=== PATIENT | female | born 1965 | race Caucasian/White ===

== ENCOUNTER 2017-04-10 14:27 | Emergency (ER) | payer MEDICARE, MEDICAID ==
[2017-04-10] MEDS ORDERED: Tetan/Diph/Pertus SYR(Tdap)* 0.5 ML SYR(BOOSTRIX) use SYR IM ONE (16:50)
[2017-04-10 17:13] VITALS: BP 108/62
--- NOTE | 2017-04-11 18:29 | ED ---
Ryan Swift Angela, scribed for Rob Pan MD on 04/10/17 at 1642 . Skin Complaint - HPI Summary HPI Summary: This pt is a 52 y/o female presenting to [facility] for a burn on right forearm since yesterday. Pt reports she was in the kitchen yesterday when her knees gave out and fell hitting her right forearm on the stove. She sustained a burn on her right forearm from this. Denies head strike or LOC. Pt notes she had a blister today that popped open and had clear discharge. Pt notes she has some pain now. She states her last tetanus shot was "years ago." - History of Current Complaint Chief Complaint: EDExtremityUpper Time Seen by Provider: 04/10/17 16:28 Stated Complaint: FALL/RT ARM INJURY Hx Obtained From: Patient Onset/Duration: Started Days Ago - 1, Still Present Skin Exposure Onset/Duration: Days Ago - 1 Timing: Lasting Days - 1 Current Severity: Moderate Pain Intensity: 6 Pain Scale Used: 0-10 Numeric Skin Location: Arm - right forearm Character: Pain, Redness Aggravating Symptom(s): Nothing Alleviating Symptom(s): Nothing Associated Signs & Symptoms: Negative - Allergy/Home Medications Allergies/Adverse Reactions: Allergies Allergy/AdvReac Type Severity Reaction Status Date / Time alcohol Allergy Intermediate Headache Verified 04/10/17 13:31 oxycodone Allergy Intermediate Unknown Verified 04/10/17 13:31 Reaction Details PMH/Surg Hx/FS Hx/Imm Hx Endocrine/Hematology History: Denies: Hx Anticoagulant Therapy, Hx Diabetes, Hx Thyroid Disease Cardiovascular History: Reports: Hx Hypertension, Hx Syncope Denies: Hx Pacemaker/ICD Respiratory History: Reports: Hx Sleep Apnea Denies: Hx Asthma, Hx Chronic Obstructive Pulmonary Disease (COPD) GI History: Reports: Hx Ulcer History: Denies: Hx Renal Disease Musculoskeletal History: Reports: Hx Arthritis, Hx Back Problems, Hx Orthopedic Injury - Fracture left arm, Hx Scoliosis, Hx Tendonitis Comment Only: Other Musculoskeletal History - CARPLE TUNNEL SYNDROME Sensory History: Reports: Hx Contacts or Glasses Opthamlomology History: Reports: Hx Contacts or Glasses Neurological History: Reports: Hx Migraine Denies: Hx Dementia, Hx Seizures Psychiatric History: Reports: Hx Anxiety, Hx Depression Denies: Hx Substance Abuse - Cancer History Cancer Type, Location and Year: LT BREAST CA - Surgical History Surgery Procedure, Year, and Place: Hysterectomy 2016 [facility], [facility] in [place], [place]; Lymph nodes and 3 nodules removed from left breast [facility] in [place], [place]; 3 C-Sections; Carpal Tunnel Surgery bilateral wrist in [place] in 2004; [employer] Shadi Implant for Scoliosis in 1983 in [place] Infectious Disease History: No Infectious Disease History: Denies: Hx Hepatitis, Hx Human Immunodeficiency Virus (HIV), Traveled Outside the [place] in Last 30 Days - Family History Family History: Migraine - Social History Alcohol Use: None Substance Use Type: Reports: None Smoking Status (MU): Current Every Day Smoker Type: Cigarettes Amount Used/How Often: 6-10 cigarettes/day Have You Smoked in the Last Year: Yes Review of Systems Negative: Fever, Chills Eyes: Negative ENT: Negative Cardiovascular: Negative Respiratory: Negative Gastrointestinal: Negative Skin: Other - burn on right forearm Neurological: Negative All Other Systems Reviewed And Are Negative: Yes Physical Exam - Summary Physical Exam Summary: VITAL SIGNS: Reviewed. GENERAL: Patient is a well-developed and nourished female who is lying comfortable in the stretcher. Patient is not in any acute respiratory distress. HEAD AND FACE: No signs of trauma. No ecchymosis, hematomas or skull depressions. No sinus tenderness. EYES: PERRLA, EOMI x 2, No injected conjunctiva, no nystagmus. EARS: Hearing grossly intact. Ear canals and tympanic membranes are within normal limits. MOUTH: Oropharynx within normal limits. NECK: Supple, trachea is midline, no adenopathy, no JVD, no carotid bruit, no c- spine tenderness, neck with full ROM. CHEST: Symmetric, no tenderness at palpation LUNGS: Clear to auscultation bilaterally. No wheezing or crackles. CVS: Regular rate and rhythm, S1 and S2 present, no murmurs or gallops appreciated. ABDOMEN: Soft, non-tender. No signs of distention. No rebound no guarding, and no masses palpated. Bowel sounds are normal. EXTREMITIES: FROM in all major joints, no edema, no cyanosis or clubbing. NEURO: Alert and oriented x 3. No acute neurological deficits. Speech is normal and follows commands. SKIN: Dry and warm. Small first degree burn on the dorsal aspect of the right forearm. Triage Information Reviewed: Yes Vital Signs On Initial Exam: Initial Vitals Temp Pulse Resp BP Pulse Ox 97.0 F 90 15 143/99 97 04/10/17 14:39 04/10/17 14:39 04/10/17 14:39 04/10/17 14:39 04/10/17 14:39 Vital Signs Reviewed: Yes Diagnostics - Vital Signs Vital Signs Temp Pulse Resp BP Pulse Ox 04/10/17 14:39 97.0 F 90 15 143/99 97 - Laboratory Lab Statement: Any lab studies that have been ordered have been reviewed, and results considered in the medical decision making process. Course/Dx - Course Assessment/Plan: This pt is a 52 y/o female presenting to [facility] for a burn on right forearm since yesterday. Pt reports she was in the kitchen yesterday when her knees gave out and fell hitting her right forearm on the stove. She sustained a burn on her right forearm from this. Denies head strike or LOC. Pt notes she had a blister today that popped open and had clear discharge. Pt notes she has some pain now. She states her last tetanus shot was "years ago." . I placed Bacitracin on pts burn. She was given a tetanus shot. Her wound was cleaned and dressed. Therefore the pt will be discharged home with follow up from her PCP. She was instructed to return to the ED for any worsening or new symptoms. Pt is hemodynamically stable, alert and oriented x3. - Diagnoses Provider Diagnoses: First degree burn Discharge - Discharge Plan Condition: Stable Disposition: HOME Patient Education Materials: Superficial Burn (ED) Referrals: Luis Antonio LEDEZMA,Pranay Farrell [Primary Care Provider] - 3 Days Additional Instructions: Please follow up with your primary care provider. RETURN TO THE ED FOR ANY WORSENING SYMPTOMS. The documentation as recorded by the Ryan rich Angela accurately reflects the service I personally performed and the decisions made by me, Rob Pan MD.
== END 2017-04-10 17:11 | disposition home or self-care (01) ==
LOC: ED 14:27
DX: T22.111A Burn of first degree of right forearm, initial encounter (principal); X15.0XXA Contact with hot stove (kitchen), initial encounter; Y92.89 Other specified places as the place of occurrence of the external cause; F17.210 Nicotine dependence, cigarettes, uncomplicated
CPT/HCPCS: 90471; 90715; 99281

== ENCOUNTER 2017-06-20 12:28 | Emergency (ER) | payer MEDICARE, MEDICAID ==
[2017-06-20] MEDS ORDERED: diPHENhydraMINE IV* 50 MG/ML 1 ml VIAL (BENADRYL) IM ONE (16:08)
[2017-06-20] MEDS ORDERED: Metoclopramide IV* 5 MG/ML 2 ML VIAL ONE (16:09)
[2017-06-20] MEDS ORDERED: Butalb/Acetamin/Caff TAB* 1 TAB PO ONE (17:10)
[2017-06-20 17:39] VITALS: BP 142/91
--- NOTE | 2017-06-20 17:45 | ED ---
Ryan Swift Angela, scribed for Demar Nolen on 06/20/17 at 1622 . Headache - HPI Summary HPI Summary: This pt is a 52 y/o female presenting to [facility] c/o headache x2 days. Pt reports this headache is similar to her typical migraine headache. She has taken Imitrex with no relief. Pt rates her pain 8 out of 10 in severity. Pt denies fever, neck pain, blurry vision. Denies tobacco, drug, and alcohol use. - History Of Current Complaint Chief Complaint: EDHeadache Stated Complaint: N/V Time Seen by Provider: 06/20/17 16:01 Hx Obtained From: Patient Onset/Duration: Started days ago, Still Present Initially Headache Was: Moderate Timing: Constant Character: Migraine Aggravating Factor: Nothing Allevating Factors: Nothing Associated Signs And Symptoms: Negative - Allergies/Home Medications Allergies/Adverse Reactions: Allergies Allergy/AdvReac Type Severity Reaction Status Date / Time acetaminophen Allergy Severe See Comment Verified 06/20/17 12:35 alcohol Allergy Intermediate Headache Verified 06/20/17 12:35 oxycodone Allergy Intermediate Unknown Verified 06/20/17 12:35 Reaction Details Home Medications: Home Medications Candesartan (NF) [Atacand (NF)] 16 mg PO DAILY 06/20/17 [History Confirmed 06/20] Divalproex ER TAB(*) [Depakote ER TAB(*)] 500 mg PO BID 06/20/17 [History Confirmed 06/20/17] Gabapentin CAP(*) [Neurontin 300 CAP(*)] 300 mg PO TID 06/20/17 [History Confirmed 06/20/17] Methocarbamol TAB* [Robaxin 500 MG TAB*] 500 mg PO TID PRN 06/20/17 [History Confirmed 06/20/17] Naproxen TAB* [Naprosyn 375 mg TAB*] 500 mg PO BID 06/20/17 [History Confirmed 06/20/17] Nortriptyline CAP* [Pamelor CAP*] 50 mg PO QPM 06/20/17 [History Confirmed 06/20] Ondansetron TAB* [Zofran 4 MG Tab*] 8 mg PO DAILY PRN 06/20/17 [History Confirmed 06/20/17] SUMAtriptan TAB* [Imitrex TAB*] 100 mg PO DAILY PRN 06/20/17 [History Confirmed 06/20/17] traMADol TAB* [Ultram*] 50 mg PO TID PRN 06/20/17 [History Confirmed 06/20/17] PMH/Surg Hx/FS Hx/Imm Hx Endocrine/Hematology History: Denies: Hx Anticoagulant Therapy, Hx Diabetes, Hx Thyroid Disease Cardiovascular History: Reports: Hx Hypertension, Hx Syncope Denies: Hx Pacemaker/ICD Respiratory History: Reports: Hx Sleep Apnea Denies: Hx Asthma, Hx Chronic Obstructive Pulmonary Disease (COPD) GI History: Reports: Hx Ulcer History: Denies: Hx Renal Disease Musculoskeletal History: Reports: Hx Arthritis, Hx Back Problems, Hx Orthopedic Injury - Fracture left arm, Hx Scoliosis, Hx Tendonitis Comment Only: Other Musculoskeletal History - CARPLE TUNNEL SYNDROME Sensory History: Reports: Hx Contacts or Glasses Opthamlomology History: Reports: Hx Contacts or Glasses Neurological History: Reports: Hx Migraine Denies: Hx Dementia, Hx Seizures Comment Only: Other Neuro Impairments/Disorders - PAIN CLINIC PT Psychiatric History: Reports: Hx Anxiety, Hx Depression Denies: Hx Substance Abuse - Cancer History Cancer Type, Location and Year: LT BREAST CA - Surgical History Surgery Procedure, Year, and Place: Hysterectomy 2016 [facility] in [place], [place]; Lymph nodes and 3 nodules removed from left breast 2013 at [facility] in [place], [place]; 3 C-Sections; Carpal Tunnel Surgery bilateral wrist in [place] in 2004; [employer] Shadi Implant for Scoliosis in 1983 in [place] Infectious Disease History: No Infectious Disease History: Denies: Hx Hepatitis, Hx Human Immunodeficiency Virus (HIV), Traveled Outside the in Last 30 Days - Family History Family History: Migraine - Social History Alcohol Use: None Substance Use Type: Reports: None Smoking Status (MU): Current Every Day Smoker Type: Cigarettes Amount Used/How Often: 6-10 cigarettes/day Have You Smoked in the Last Year: Yes Review of Systems Negative: Fever, Chills Gastrointestinal: Negative Genitourinary: Negative Musculoskeletal: Negative Skin: Negative Positive: Headache All Other Systems Reviewed And Are Negative: Yes Physical Exam - Summary Physical Exam Summary: Appearance: Well appearing, no pain distress Skin: warm, dry, reflects adequate perfusion Head/face: normal Eyes: EOMI, CHAN ENT: normal Neck: supple, nontender Respiratory: CTA, breath sounds present Cardiovascular: RRR, pulses symmetrical Abdomen: nontender, soft Bowel: present Musculoskeletal: normal, strength/ROM intact Neuro: normal, sensory motor intact, A&Ox3 GCS: 15 Triage Information Reviewed: Yes Vital Signs On Initial Exam: Initial Vitals Temp Pulse Resp BP Pulse Ox 98.0 F 87 16 152/100 99 06/20/17 12:31 06/20/17 12:31 06/20/17 12:31 06/20/17 12:31 06/20/17 12:31 Vital Signs Reviewed: Yes Diagnostics - Vital Signs Vital Signs Temp Pulse Resp BP Pulse Ox 06/20/17 14:26 98.6 F 84 17 157/95 97 06/20/17 12:31 98.0 F 87 16 152/100 99 - Laboratory Lab Statement: Any lab studies that have been ordered have been reviewed, and results considered in the medical decision making process. Headache Course/Dx - Course Assessment/Plan: Pt is a 52 y/o female presenting to [facility] c/o headache x2 days. Pt declines brain CT. In the ED course the pt was given Benadryl, Reglan , and Fioricet. Pt is feeling better. She will be discharged home with follow up from her PCP. Pt was given instructions to return to the ED for any worsening symptoms. - Diagnoses Differential Diagnosis/HQI/PQRI: Migraine, Sinus Headache, Tension Headache Provider Diagnoses: Headache Discharge - Sign-Out/Discharge Documenting (check all that apply): Discharge/Admit/Transfer - discharge to home - Discharge Plan Condition: Stable Disposition: HOME Patient Education Materials: General Headache (ED) Referrals: Luis Antonio LEDEZMA,Pranay Farrell [Primary Care Provider] - Additional Instructions: Please follow up with your primary care provider in 3 days. RETURN TO THE ED FOR ANY WORSENING SYMPTOMS. - Billing Disposition and Condition Condition: STABLE Disposition: HOME The documentation as recorded by the Ryan rich Angela accurately reflects the service I personally performed and the decisions made by , Demar Nolen.
== END 2017-06-20 17:38 | disposition home or self-care (01) ==
LOC: ED 12:28
DX: R51 Headache (principal); I10 Essential (primary) hypertension; R55 Syncope and collapse; F41.9 Anxiety disorder, unspecified; F32.9 Major depressive disorder, single episode, unspecified; Z88.6 Allergy status to analgesic agent; Z88.5 Allergy status to narcotic agent; F17.210 Nicotine dependence, cigarettes, uncomplicated
CPT/HCPCS: 96372; 99282; A9270-GY; J1200; J2765

== ENCOUNTER 2017-08-20 15:32 | Observation (INO) | payer MEDICARE, MEDICAID ==
[2017-08-20] MEDS ORDERED: Morphine VIAL* 4 MG/ML VIAL (1 ml vial) IV ONE (16:15)
[2017-08-20] MEDS ORDERED: Aspirin 81 mg CHEW TAB* 81 MG TAB.CHEW PO ONE (16:15)
--- NOTE | 2017-08-20 16:25 | RAD ---
Indication: Chest pain. Single frontal view of the chest performed at 1615 hours was reviewed. No prior study is available for comparison. No mediastinal shift is noted. Heart is of normal size and configuration. Lung bowling appear clear. IMPRESSION: NO ACTIVE CARDIOPULMONARY DISEASE IS NOTED.
[2017-08-20 16:29] LABS: ABS Basophils 0.1 10^3/ul (0-0.2); ABS Eosinophils 0.2 10^3/ul (0-0.6); ABS Lymphocytes 3.3 10^3/ul (1.0-4.8); ABS Monocytes 1.1 10^3/ul (0-0.8); ABS Neutrophils 5.7 10^3/ul (1.5-7.7); ABS Nucleated RBC 0 10^3/ul; Eosinophil % 1.5 % (0-6); Hematocrit 39 % (35-47); Hemoglobin 13.3 g/dl (12.0-16.0); Mean Corpuscular HGB Conc 34 g/dl (31-36); Mean Corpuscular Hemoglobin 32 pg (27-31); Mean Corpuscular Volume 93 fL (80-97); Mean Platelet Volume 8.7 um3 (7.4-10.4); Nucleated Red Blood Cells % 0.1; Platelet Count 287 10^3/ul (150-450); Red Blood Count 4.19 10^6/ul (4.00-5.40); Red Cell Distribution Width 14 % (10.5-15); White Blood Count 10.4 10^3/ul (3.5-10.8)
[2017-08-20 16:38] LABS: INR 0.99 (0.77-1.02)
[2017-08-20] MEDS ORDERED: Nitroglycerin TAB 0.4 MG* 0.4 MG TAB SL ONE ×2 (17:05→18:07)
[2017-08-20] MEDS ORDERED: Methocarbamol TAB* 500 MG PO PRN (17:53)
[2017-08-20] MEDS ORDERED: traMADol TAB* 50 MG PO PRN (17:53)
[2017-08-20] MEDS ORDERED: SUMATRIPTAN 20 MG PRN (17:53)
[2017-08-20] MEDS ORDERED: Naproxen TAB* 250 MG PO PRN (17:53)
[2017-08-20] MEDS ORDERED: Ondansetron 40 MG VIAL* 2 MG/ML 20 ML VIAL IV PRN (17:55)
[2017-08-20] MEDS ORDERED: NS 0.9% 1000 ML* 1,000 ML IV SCH (18:00)
[2017-08-20] MEDS ORDERED: SUMAtriptan TAB* 100 MG PO PRN (18:00)
[2017-08-20] MEDS ORDERED: Morphine VIAL* 4 MG/ML VIAL (1 ml vial) IV PRN (18:03)
--- NOTE | 2017-08-20 19:33 | ED ---
Antoinette Swift Jade, scribed for Margret Marrufo MD on 08/20/17 at 1606 . HPI Chest Pain - HPI Summary HPI Summary: Pt is a 52 y/o female who presents to the ED c/o CP. She states the pain suddenly came on at 13:30 while waiting to get Botox injections for her migraines. The pain is described as a 2/10 in severity, and is sharp in quality. Pt feels like there are intermittent shocks to her chest as well, which intensify her migraine in her temples. She also c/o mild SOB, diaphoresis , and states she has high BP currently. She has a PMHx of HTN, scoliosis, breast cancer, syncope, ulcers, arthritis, anxiety, depression, and migraines. She denies any PMHx of HLD, RI, or blood clots. Pt denies any use of drugs of alcohol, but is a smoker. She is not on blood thinners. - History of Current Complaint Chief Complaint: EDChestPainROMI Time Seen by Provider: 08/20/17 15:51 Hx Obtained From: Patient Onset/Duration: Started Hours Ago - 13:30, Still Present Timing: Constant Current Severity: Mild Pain Intensity: 2 Pain Scale Used: 0-10 Numeric Chest Pain Location: Mid Sternal Chest Pain Radiates: No Character: Sharp/Stabbing Aggravating Factor(s): Nothing Alleviating Factor(s): Nothing Associated Signs and Symptoms: Positive: Chest Pain, Headaches, Shortness of Breath - Allergy/Home Medications Allergies/Adverse Reactions: Allergies Allergy/AdvReac Type Severity Reaction Status Date / Time acetaminophen Allergy Severe See Comment Verified 08/20/17 15:43 alcohol Allergy Intermediate Headache Verified 08/20/17 15:43 oxycodone Allergy Intermediate Unknown Verified 08/20/17 15:43 Reaction Details PMH/Surg Hx/FS Hx/Imm Hx Endocrine/Hematology History: Denies: Hx Anticoagulant Therapy, Hx Diabetes, Hx Thyroid Disease Cardiovascular History: Reports: Hx Hypertension, Hx Syncope Denies: Hx Pacemaker/ICD Respiratory History: Reports: Hx Sleep Apnea Denies: Hx Asthma, Hx Chronic Obstructive Pulmonary Disease (COPD) GI History: Reports: Hx Ulcer History: Denies: Hx Renal Disease Musculoskeletal History: Reports: Hx Arthritis, Hx Back Problems, Hx Orthopedic Injury - Fracture left arm, Hx Scoliosis, Hx Tendonitis Comment Only: Other Musculoskeletal History - CARPLE TUNNEL SYNDROME Sensory History: Reports: Hx Contacts or Glasses Opthamlomology History: Reports: Hx Contacts or Glasses Neurological History: Reports: Hx Migraine Denies: Hx Dementia, Hx Seizures Comment Only: Other Neuro Impairments/Disorders - PAIN CLINIC PT Psychiatric History: Reports: Hx Anxiety, Hx Depression Denies: Hx Substance Abuse - Cancer History Cancer Type, Location and Year: LT BREAST CA - Surgical History Surgery Procedure, Year, and Place: Hysterectomy 2016 [facility] in [place], [place]; Lymph nodes and 3 nodules removed from left breast [facility] [place], [place]; 3 C-Sections; Carpal Tunnel Surgery bilateral wrist in [place] in 2004; Clarke Shadi Implant for Scoliosis in 1983 in [place] Infectious Disease History: No Infectious Disease History: Denies: Hx Hepatitis, Hx Human Immunodeficiency Virus (HIV), Traveled Outside the in Last 30 Days - Family History Known Family History: Positive: Cardiac Disease - RI (father at 54), Other - Migraine Family History: Migraine - Social History Occupation: Disabled Alcohol Use: None Substance Use Type: Reports: None Smoking Status (MU): Current Every Day Smoker Type: Cigarettes Amount Used/How Often: 6-10 cigarettes/day Have You Smoked in the Last Year: Yes Review of Systems Positive: Skin Diaphoresis Positive: Chest Pain Positive: Shortness Of Breath Positive: Headache - Migraine All Other Systems Reviewed And Are Negative: Yes Physical Exam - Summary Physical Exam Summary: GENERAL: Patient is a well-developed and nourished F who is lying comfortable in the stretcher. Patient is not in any acute respiratory distress. HEAD AND FACE: Normocephalic. EYES: PERRLA, EOMI x 2. EARS: Hearing grossly intact. MOUTH: Oropharynx within normal limits. NECK: Supple, trachea is midline, no adenopathy, no JVD, no carotid bruit. CHEST: Symmetric, no tenderness at palpation LUNGS: Clear to auscultation bilaterally. No wheezing or crackles. CVS: Regular rate and rhythm, S1 and S2 present, no murmurs or gallops appreciated. ABDOMEN: Soft, non-tender. Bowel sounds are normal. No abdominal abnormal pulsations. EXTREMITIES: Full ROM in all major joints, no edema, no cyanosis or clubbing. NEURO: Alert and oriented x 3. No acute neurological deficits. Speech is normal and follows commands. SKIN: Dry and warm. Triage Information Reviewed: Yes Vital Signs On Initial Exam: Initial Vitals Temp Pulse Resp BP Pulse Ox 97.6 F 85 22 164/99 98 08/20/17 15:35 08/20/17 15:35 08/20/17 15:35 08/20/17 15:35 08/20/17 15:35 Vital Signs Reviewed: Yes Diagnostics - Vital Signs Vital Signs Temp Pulse Resp BP Pulse Ox 08/20/17 15:35 97.6 F 85 22 164/99 98 - Laboratory Lab Results: Lab Results 08/20/17 08/20/17 08/20/17 Range/Units 16:14 16:14 16:14 WBC 10.4 (3.5-10.8) 10^3/ul RBC 4.19 (4.00-5.40) 10^6/ul Hgb 13.3 (12.0-16.0) g/dl Hct 39 (35-47) % MCV 93 (80-97) fL MCH 32 H (27-31) pg MCHC 34 (31-36) g/dl RDW 14 (10.5-15) % Plt Count 287 (150-450) 10^3/ul MPV 8.7 (7.4-10.4) um3 Neut % (Auto) 55.2 (38-83) % Lymph % (Auto) 32.0 (25-47) % Bailey % (Auto) 10.1 H (0-7) % Eos % (Auto) 1.5 (0-6) % Baso % (Auto) 1.2 (0-2) % Absolute Neuts (auto) 5.7 (1.5-7.7) 10^3/ul Absolute Lymphs (auto) 3.3 (1.0-4.8) 10^3/ul Absolute Monos (auto) 1.1 H (0-0.8) 10^3/ul Absolute Eos (auto) 0.2 (0-0.6) 10^3/ul Absolute Basos (auto) 0.1 (0-0.2) 10^3/ul Absolute Nucleated RBC 0 10^3/ul Nucleated RBC % 0.1 INR (Anticoag Therapy) 0.99 (0.77-1.02) APTT 34.3 (26.0-36.3) seconds D-Dimer, Quantitative < 200 (Less Than 230) ng/mL Sodium 139 (135-145) mmol/L Potassium 3.6 (3.5-5.0) mmol/L Chloride 108 (101-111) mmol/L Carbon Dioxide 24 (22-32) mmol/L Anion Gap 7 (2-11) mmol/L BUN 7 (6-24) mg/dL Creatinine 0.63 (0.51-0.95) mg/dL Est GFR ( Amer) 121.0 (>60) Est GFR (Non-Af Amer) 100.0 (>60) BUN/Creatinine Ratio 11.1 (8-20) Glucose 108 H (70-100) mg/dL Hemoglobin A1c (4.0-5.6) % Lactic Acid (0.5-2.0) mmol/L Calcium 9.8 (8.6-10.3) mg/dL Magnesium 2.1 (1.9-2.7) mg/dL Total Bilirubin 0.40 (0.2-1.0) mg/dL AST 11 L (13-39) U/L ALT 11 (7-52) U/L Alkaline Phosphatase 71 (34-104) U/L Troponin I 0.00 (<0.04) ng/mL B-Natriuretic Peptide ( - 100) pg/mL Total Protein 6.9 (6.4-8.9) g/dL Albumin 3.9 (3.2-5.2) g/dL Globulin 3.0 (2-4) g/dL Albumin/Globulin Ratio 1.3 (1-3) 08/20/17 08/20/17 08/20/17 Range/Units 16:14 16:14 16:14 WBC (3.5-10.8) 10^3/ul RBC (4.00-5.40) 10^6/ul Hgb (12.0-16.0) g/dl Hct (35-47) % MCV (80-97) fL MCH (27-31) pg MCHC (31-36) g/dl RDW (10.5-15) % Plt Count (150-450) 10^3/ul MPV (7.4-10.4) um3 Neut % (Auto) (38-83) % Lymph % (Auto) (25-47) % Bailey % (Auto) (0-7) % Eos % (Auto) (0-6) % Baso % (Auto) (0-2) % Absolute Neuts (auto) (1.5-7.7) 10^3/ul Absolute Lymphs (auto) (1.0-4.8) 10^3/ul Absolute Monos (auto) (0-0.8) 10^3/ul Absolute Eos (auto) (0-0.6) 10^3/ul Absolute Basos (auto) (0-0.2) 10^3/ul Absolute Nucleated RBC 10^3/ul Nucleated RBC % INR (Anticoag Therapy) (0.77-1.02) APTT (26.0-36.3) seconds D-Dimer, Quantitative (Less Than 230) ng/mL Sodium (135-145) mmol/L Potassium (3.5-5.0) mmol/L Chloride (101-111) mmol/L Carbon Dioxide (22-32) mmol/L Anion Gap (2-11) mmol/L BUN (6-24) mg/dL Creatinine (0.51-0.95) mg/dL Est GFR ( Amer) (>60) Est GFR (Non-Af Amer) (>60) BUN/Creatinine Ratio (8-20) Glucose (70-100) mg/dL Hemoglobin A1c 5.5 (4.0-5.6) % Lactic Acid 1.2 (0.5-2.0) mmol/L Calcium (8.6-10.3) mg/dL Magnesium (1.9-2.7) mg/dL Total Bilirubin (0.2-1.0) mg/dL AST (13-39) U/L ALT (7-52) U/L Alkaline Phosphatase (34-104) U/L Troponin I (<0.04) ng/mL B-Natriuretic Peptide 15 ( - 100) pg/mL Total Protein (6.4-8.9) g/dL Albumin (3.2-5.2) g/dL Globulin (2-4) g/dL Albumin/Globulin Ratio (1-3) 06/25/18 Range/Units 18:53 WBC (3.5-10.8) 10^3/ul RBC (4.00-5.40) 10^6/ul Hgb (12.0-16.0) g/dl Hct (35-47) % MCV (80-97) fL MCH (27-31) pg MCHC (31-36) g/dl RDW (10.5-15) % Plt Count (150-450) 10^3/ul MPV (7.4-10.4) um3 Neut % (Auto) (38-83) % Lymph % (Auto) (25-47) % Bailey % (Auto) (0-7) % Eos % (Auto) (0-6) % Baso % (Auto) (0-2) % Absolute Neuts (auto) (1.5-7.7) 10^3/ul Absolute Lymphs (auto) (1.0-4.8) 10^3/ul Absolute Monos (auto) (0-0.8) 10^3/ul Absolute Eos (auto) (0-0.6) 10^3/ul Absolute Basos (auto) (0-0.2) 10^3/ul Absolute Nucleated RBC 10^3/ul Nucleated RBC % INR (Anticoag Therapy) (0.77-1.02) APTT (26.0-36.3) seconds D-Dimer, Quantitative (Less Than 230) ng/mL Sodium (135-145) mmol/L Potassium (3.5-5.0) mmol/L Chloride (101-111) mmol/L Carbon Dioxide (22-32) mmol/L Anion Gap (2-11) mmol/L BUN (6-24) mg/dL Creatinine (0.51-0.95) mg/dL Est GFR ( Amer) (>60) Est GFR (Non-Af Amer) (>60) BUN/Creatinine Ratio (8-20) Glucose (70-100) mg/dL Hemoglobin A1c (4.0-5.6) % Lactic Acid (0.5-2.0) mmol/L Calcium (8.6-10.3) mg/dL Magnesium (1.9-2.7) mg/dL Total Bilirubin (0.2-1.0) mg/dL AST (13-39) U/L ALT (7-52) U/L Alkaline Phosphatase (34-104) U/L Troponin I 0.00 (<0.04) ng/mL B-Natriuretic Peptide ( - 100) pg/mL Total Protein (6.4-8.9) g/dL Albumin (3.2-5.2) g/dL Globulin (2-4) g/dL Albumin/Globulin Ratio (1-3) Result Diagrams: 08/20/17 16:14 08/20/17 16:14 Lab Statement: Any lab studies that have been ordered have been reviewed, and results considered in the medical decision making process. - Radiology CXR Xray Interpretation: No Acute Changes - 15:52: NO ACTIVE CARDIOPULMONARY DISEASE IS NOTED. ED physician reviewed radiology report. Radiology Interpretation Completed By: Radiologist - EKG 15:56 Cardiac Rate: NL - 85 bpm EKG Rhythm: Sinus Rhythm ST Segment: Normal Chest Pain Course/Dx - Course Course Of Treatment: Pt is a 52 y/o female who presents to the ED c/o CP. She states the pain suddenly came on at 13:30 while waiting to get Botox injections for her migraines. The pain is described as a 2/10 in severity, and is sharp in quality. Pt feels like there are intermittent shocks to her chest as well, which intensify her migraine in her temples. She also c/o mild SOB, diaphoresis , and states she has high BP currently. She has a PMHx of HTN, scoliosis, breast cancer, syncope, ulcers, arthritis, anxiety, depression, and migraines. She denies any PMHx of HLD, RI, or blood clots. Pt denies any use of drugs of alcohol, but is a smoker. She is not on blood thinners. The physical exam was normal. A CXR revealed no active cardiopulmonary disease. An EKG revealed a normal rate at 85 bpm, normal rhythm, and normal ST segment. Labs were reviewed and were normal, including troponin and D-Dimer. The final dx was chest pain. Discussed results with the pt. Dr. Osuna accepts the pt for admission. - Diagnoses Provider Diagnoses: Chest pain - Provider Notifications Discussed Care Of Patient With: Pranay Osuna Time Discussed With Above Provider: 17:05 Instructed by Provider To: Admit As Inpatient - Dr. Osuna accepts pt for admission. Discharge - Sign-Out/Discharge Documenting (check all that apply): Discharge/Admit/Transfer - Admit - Discharge Plan Condition: Stable Disposition: ADMITTED TO [facility] Referrals: Luis Antonio LEDEZMA,Pranay Farrell [Primary Care Provider] - 3 Days - Billing Disposition and Condition Condition: STABLE Disposition: Admitted to [facility] The documentation as recorded by the Antoinette rich Jade accurately reflects the service I personally performed and the decisions made by me, Margret Marrufo MD.
[2017-08-20] MEDS ORDERED: Valsartan TAB* 80 MG PO SCH (21:00)
[2017-08-20] MEDS: Gabapentin CAP(*) 300 MG PO SCH (23:50)
[2017-08-20] MEDS: Divalproex ER TAB(*) 500 MG PO SCH (23:51)
[2017-08-20] MEDS: Nortriptyline CAP* 25 MG PO SCH (23:51)
[2017-08-20] MEDS: Heparin VIAL(*) 5000 UNITS/ML VIAL (FIVE THOUSAND) SUBCUT SCH (23:52)
--- NOTE | 2017-08-21 00:24 | HP ---
ADMISSION HISTORY AND PHYSICAL: DATE OF ADMISSION: 08/20/17 PRIMARY CARE PROVIDER: Dr. Pranay Salmon MD HEALTHCARE PROXY: Her ex-, Addi. CODE STATUS: Full. SOURCE OF INFORMATION: History obtained from interview with the patient. RELIABILITY: Good. CHIEF COMPLAINT: Chest pain. HISTORY OF PRESENT ILLNESS: This is a 52-year-old female, past medical history includes low-grade breast cancer, status post lumpectomy, lymph node dissection and radiation therapy; obstructive sleep apnea; hypertension; and active tobacco use x41 years who has been in her usual state of healthy, was waiting for a ride and felt like someone punched her in the chest followed by sensation that she was having muscle spasms, located substernal in the middle of her chest. It is not associated with nausea, but did note a worsening headache associated with lightheadedness and a sensation of feeling hot. She has noted over the last 2 to 3 days, she is waking up with left-sided chest pain as if under her left breast is sore, better after 2 to 3 hours. She notes she had been well until approximately 3 weeks prior she had URI symptoms with associated congestion and rhinorrhea, phlegm and cough, which has resolved, but she does have some residual dry cough. She denies any symptoms or urinary frequency, dysuria, fevers, chills, night sweats. Her greatest amount of activity is walking to her neighbors, which is about 100 to 200 yards, which she can do without experiencing chest pain. In the emergency room, she continued to have chest discomfort, for which she received sublingual nitroglycerin with relief. PAST MEDICAL HISTORY: Includes migraines; breast cancer, status post lumpectomy , lymph node dissection and radiation therapy; hypertension; syncope; obstructive sleep apnea, on CPAP at night; carpal tunnel release bilaterally; hysterectomy in 2016; 3 C-sections; Clarke almas placed for scoliosis as a child; chronic lower back pain, currently receiving injections. HOME MEDICATIONS: Reviewed with the patient include: 1. Divalproex 500 mg twice daily. 2. Gabapentin 600 mg 3 times a day. 3. Nortriptyline 25 mg 3 times a day. 4. Methocarbamol 500 mg 3 times a day. 5. Candesartan 16 mg at bedtime. 6. Sumatriptan 100 mg as needed p.o. as well as 20 mg nasal spray as needed. 7. Antacid as needed. 8. Stool softener as needed. 9. Tramadol 50 mg daily as needed. 10. Ondansetron 8 mg as needed every 3 times daily. ALLERGIES: PERCOCET, ACETAMINOPHEN and ALCOHOL. FAMILY HISTORY: Mother with migraine. Father from an [place] at the age of 54. SOCIAL HISTORY: Tobacco, 6 to 8 cigarettes per day since age 11. No alcohol. REVIEW OF SYSTEMS: As per HPI, otherwise all other systems negative. PHYSICAL EXAMINATION GENERAL: Sitting up in bed, interactive, pleasant, no apparent distress. VITAL SIGNS: In the emergency room, 139/116, respiratory rate 16, heart rate is 85, T-max 97.6. HEENT: Oropharynx is clear. She has moist mucous membranes. Sclerae are anicteric. LUNGS: Her chest has tenderness in her precordium. Her lungs have mild rales in right base, otherwise clear to auscultation. HEART: She has regular rate and rhythm. No murmurs, rubs or gallops. ABDOMEN: Soft, nontender. EXTREMITIES: Warm and well perfused without clubbing, cyanosis or edema. NEUROLOGIC: She is alert and oriented x3. Her cranial nerves II through XII are intact. She has no apparent anxiety, agitation or depression. DIAGNOSTIC STUDIES/LAB DATA: Creatinine 0.63. Troponin I 0.00. BNP 15. White blood cell count is 10.4. Imaging: X-ray, no cardiopulmonary disease. EKG, normal sinus rhythm, ventricular rate at 85, left axis, no ST or T-wave changes, no Q waves. ASSESSMENT AND PLAN: This is a 52-year-old female with past medical history of breast cancer, status post radiation therapy to her chest; hypertension; obstructive sleep apnea, 41 years of smoking history and a family history of early coronary artery disease, developed sudden onset of chest pain, now presenting for evaluation. 1. Chest pain with multiple risk factors and compelling story, admitted to the hospital with telemetry. Check serial troponins as well as hemoglobin A1c and fasting lipid panel in the morning. Maintain n.p.o. status and check chemical stress tomorrow with nuclear imaging. Sublingual nitro as needed for pain or morphine to avoid worsening of her chronic migraines. 2. Obstructive sleep apnea. Continue CPAP. Inspiratory pressures of 8. 3. History of hypertension. Currently, on no medications. Holding addition of antihypertensives until out of the emergency room and can consider at that point after she is pain free and this environment still needs addition of antihypertensive. 4. Migraines. Continue p.r.n. sumatriptan as needed as well as nortriptyline and divalproex. 5. DVT prophylaxis is heparin subcu. [id number]/[facility] #: [id number] [facility]
[2017-08-21] MEDS ORDERED: SUMATRIPTAN 20 MG PRN (00:40)
[2017-08-21] MEDS: Heparin VIAL(*) 5000 UNITS/ML VIAL (FIVE THOUSAND) SUBCUT SCH (05:50)
[2017-08-21] MEDS: Nortriptyline CAP* 25 MG PO SCH (07:43)
[2017-08-21] MEDS: Divalproex ER TAB(*) 500 MG PO SCH (07:44)
[2017-08-21] MEDS: Gabapentin CAP(*) 300 MG PO SCH (07:44)
[2017-08-21] MEDS ORDERED: Aspirin 81 mg CHEW TAB* 81 MG TAB.CHEW PO SCH (09:00)
[2017-08-21] MEDS ORDERED: Aminophylline IV* 25 MG/ML 10 ML VIAL ONE (09:52)
[2017-08-21] MEDS ORDERED: Regadenoson* 0.4 MG/5 ML SYRINGE ONE (09:52)
--- NOTE | 2017-08-21 11:25 | RAD ---
INDICATION: Chest pain COMPARISON: None TECHNIQUE: A single day SPECT protocol was utilized. Rest images were acquired following the intravenous injection of 10.6 millicuries of technetium 99m tetrofosmin. Pharmacologic stress images were acquired following the intravenous administration of 25.8 millicuries of technetium 99m tetrofosmin. FINDINGS: There are no defects of the stress-induced or fixed nature. The cardiac chamber size is normal. There are no wall motion abnormalities. The ejection fraction is calculated at 64 percent during during stress. IMPRESSION: NO FIXED OR ISCHEMIC DEFECTS. NORMAL WALL MOTION AND EJECTION FRACTION ASSESSMENT: LOW-RISK Based on imaging criteria from ACC/AHA 2002 Guideline Update for the Management of Patients With Chronic Stable Angina Table 23. Noninvasive Risk Stratification.
[2017-08-21 13:44] VITALS: BP 102/70
--- NOTE | 2017-08-22 07:43 | DS ---
CC: Dr. Pranay Salmon * DISCHARGE SUMMARY: DATE OF ADMISSION: 08/20/17 DATE OF DISCHARGE: 08/21/17 PRIMARY CARE PROVIDER: Dr. Pranay Salmon. PRIMARY DIAGNOSIS: Chest pain secondary to costochondritis. SECONDARY DIAGNOSES: Include: 1. Obstructive sleep apnea on CPAP. 2. History of chronic pain. 3. History of chronic migraines. 4. Hypertension. PROCEDURES PERFORMED DURING HOSPITAL STAY: Chemical stress with nuclear imaging , impression: No fixed or ischemic defects. Normal wall motion and an ejection fraction. Assessment: Low risk. PERTINENT LABORATORY DATA: Troponins 0.00 on 3 consecutive checks. PERTINENT LABORATORY DATA: Total cholesterol is 144, LDL 80, HDL 35.7. Hemoglobin A1c is 5.5. HISTORY OF PRESENT ILLNESS/HOSPITAL COURSE: This is 52-year-old female with past medical history as outlined in the history of present illness on the day of admission, who presented to the hospital with chest pain described as sudden onset, relieved with 1 sublingual nitroglycerin. She was admitted to the hospital and serial troponins and a stress test secondary to a previous family history as well as risk factors which include, obstructive sleep apnea, smoking history, radiation to her chest, and compelling story. Her stress test was normal and she had no additional chest pain during the course of the hospital stay. Her predominant complaint was her migraines which are chronic and daily. The patient had indicated that she had URI symptoms prior to presentation and on exam she had tenderness in her precordium raising the specter of costochondritis. I discussed at length with the patient the test results including but not limited to its limitations. She feels comfortable returning home to follow up with Dr. Salmon in 1 to 2 weeks. At followup please; 1. The patient did have several elevated blood pressures in the hospital including systolics at 164 which was on presentation vital signs. On discharge , blood pressure was 120/79. She is concerned about hypertension. I would follow as I am sure you . 2. Please ensure resolution of pain, evaluate further if necessary. 3. No other specific labs or vitals that need followup. Reasons to return to the hospital including but not limited to recurrent or worsening symptoms chest pain, shortness of breath, nausea, vomiting, lightheadedness, loss of consciousness, inability to obtain or tolerate medications were discussed with the patient at length with the patient she acknowledged understanding. TIME SPENT: Greater than 45 minutes was spent on discharge of this patient; greater than half was spent [id number] with the patient. [id number]/[facility] #: [id number] [facility]
== END 2017-08-21 13:42 | disposition home or self-care (01) ==
LOC: ED 15:32 → MEDTELE 17:50
PROVIDERS: ADMIT Internal Medicine; ATTEND Internal Medicine
DX: R07.9 Chest pain, unspecified (principal); M94.0 Chondrocostal junction syndrome [Tietze]; G43.909 Migraine, unspecified, not intractable, without status migrainosus; G47.33 Obstructive sleep apnea (adult) (pediatric); I10 Essential (primary) hypertension; G89.29 Other chronic pain; Z88.8 Allergy status to other drugs, medicaments and biological substances; Z85.3 Personal history of malignant neoplasm of breast; Z79.899 Other long term (current) drug therapy; F17.210 Nicotine dependence, cigarettes, uncomplicated; R06.02 Shortness of breath; G43.719 Chronic migraine without aura, intractable, without status migrainosus; Z82.49 Family history of ischemic heart disease and other diseases of the circulatory system
CPT/HCPCS: 36415; 71045; 78452; 80053; 80061; 83036; 83605; 83735; 83880; 84484; 85025; 85379; 85610; 85730; 93005; 93017; 94660; 96361; 96372; 96374; 96376; 99283; A9270-GY; A9502; G0378; J0280; J1644; J2270; J2785

== ENCOUNTER 2018-04-23 22:59 | Emergency (ER) | payer MEDICARE, MEDICAID ==
--- NOTE | 2018-04-23 23:40 | ED ---
HPI Chest Pain - HPI Summary HPI Summary: A 53 y/o female presents to [facility] with a chief complaint of chest pain since around 20:00 04/23/18. She reports that her CP has crept up on her. She denies lightheadedness, dizziness and SOB. She also reports that she has a Hx of HTN. While in the room, her BP was 143/106. The patient rates her pain as an 8/10 and claims that it radiates to her arm. She says her pain "creeped up on" her. She denies a Hx of DM. She is a smoker, claiming to smoke 6-8 cigarettes per day. She denies any leg swelling, recent travel or opioid use. She takes gabapentin. She reports a Hx of scoliosis. - History of Current Complaint Chief Complaint: EDChestWallPain Time Seen by Provider: 04/23/18 23:38 Hx Obtained From: Patient Onset/Duration: Started Hours Ago, Still Present Time of Onset: 20:00 - 04/23/18 Timing: Constant, Lasting Hours Pain Intensity: 8 - Additional Pertinent History Primary Care Physician: MARIE - Allergy/Home Medications Allergies/Adverse Reactions: Allergies Allergy/AdvReac Type Severity Reaction Status Date / Time acetaminophen AdvReac Severe no tylenol Verified 03/21/18 14:02 d/t meds she is taking alcohol AdvReac Mild Headache Verified 03/21/18 14:02 oxycodone AdvReac Unknown Verified 03/21/18 14:02 Reaction Details PMH/Surg Hx/FS Hx/Imm Hx Endocrine/Hematology History: Denies: Hx Anticoagulant Therapy, Hx Diabetes, Hx Thyroid Disease Cardiovascular History: Reports: Hx Angina, Hx Hypertension, Hx Syncope, Other Cardiovascular Problems/Disorders - STROKE Denies: Hx Coronary Artery Disease, Hx Hypercholesterolemia, Hx Myocardial Infarction, Hx Pacemaker/ICD, Hx Valvular Heart Disease Respiratory History: Reports: Hx Chronic Obstructive Pulmonary Disease (COPD), Hx Sleep Apnea Denies: Hx Asthma GI History: Reports: Hx Ulcer History: Denies: Hx Renal Disease Musculoskeletal History: Reports: Hx Arthritis, Hx Back Problems, Hx Orthopedic Injury - Fracture left arm, Hx Scoliosis, Hx Tendonitis Comment Only: Other Musculoskeletal History - CARPLE TUNNEL SYNDROME Sensory History: Reports: Hx Contacts or Glasses Denies: Hx Hearing Aid Opthamlomology History: Reports: Hx Contacts or Glasses Neurological History: Reports: Hx Headaches, Hx Migraine, Other Neuro Impairments/Disorders - PAIN CLINIC PT. Denies: Hx Dementia, Hx Seizures Psychiatric History: Reports: Hx Anxiety, Hx Depression Denies: Hx Substance Abuse - Cancer History Cancer Type, Location and Year: LT BREAST CA - Surgical History Surgery Procedure, Year, and Place: [facility] [place] [place]; Lymph nodes and 3 nodules removed from left breast [facility] [place], [place]; 3 C-Sections; Carpal Tunnel Surgery bilateral wrist in [place] in 2004; [employer] Shadi Implant for Scoliosis in 1983 in [place] Infectious Disease History: No Infectious Disease History: Denies: Hx Clostridium Difficile, Hx Hepatitis, Hx Human Immunodeficiency Virus (HIV), Hx of Known/Suspected MRSA, Hx Shingles, Hx Tuberculosis, Traveled Outside the in Last 30 Days - Family History Known Family History: Positive: Cardiac Disease - [place] (father at 54), Other - Migraine Family History: Migraine - Social History Alcohol Use: None Substance Use Type: Reports: None Smoking Status (MU): Light Every Day Tobacco Smoker Type: Cigarettes Amount Used/How Often: < 1/2 ppd Length of Time of Smoking/Using Tobacco: 42 years Have You Smoked in the Last Year: Yes Review of Systems Negative: Fever Positive: Chest Pain Negative: Shortness Of Breath Positive: Myalgia - arm pain radiating from chest Neurological: Negative - lightheadedness, dizziness All Other Systems Reviewed And Are Negative: Yes Physical Exam - Summary Physical Exam Summary: Appearance: Well-appearing, Well-nourished, lying in bed comfortably Skin: Warm, dry, no obvious rash Eyes: sclera anicteric, no conjunctival pallor ENT: mucous membranes moist, pharynx appears normal Neck: Supple, nontender Respiratory: Clear to auscultation, no signs of respiratory distress Cardiovascular: Normal S1, S2. No murmurs. Normal distal pulses in tibial and radial bilaterally. Abdomen: Soft, nontender, normal active bowel sounds present Musculoskeletal: Normal, Strength/ROM Intact Neurological: A&Ox3, awake and alert, mentation is normal, speech is fluent and appropriate Psychiatric: affect is normal, does not appear anxious or depressed Triage Information Reviewed: Yes Vital Signs On Initial Exam: Initial Vitals Temp Pulse Resp BP Pulse Ox 99 F 100 20 162/111 96 04/23/18 23:02 04/23/18 23:02 04/23/18 23:02 04/23/18 23:02 04/23/18 23:02 Vital Signs Reviewed: Yes Diagnostics - Vital Signs Vital Signs Temp Pulse Resp BP Pulse Ox 04/23/18 23:02 99 F 100 20 162/111 96 - Laboratory Result Diagrams: 04/23/18 23:55 04/23/18 23:55 Lab Statement: Any lab studies that have been ordered have been reviewed, and results considered in the medical decision making process. - Radiology CXR Radiology Interpretation Completed By: ED Physician Summary of Radiographic Findings: No acute disease. Pending official imaging report. Chest Pain Course/Dx - Course Course Of Treatment: A 53 y/o female presents to [facility] with a chief complaint of chest pain since around 20:00 04/23/18. She reports that her CP has crept up on her. She denies lightheadedness, dizziness and SOB. She also reports that she has a Hx of HTN. While in the room, her BP was 143/106. The patient rates her pain as an 8/10 and claims that it radiates to her arm. She says her pain "creeped up on" her. She denies a Hx of DM. She is a smoker, claiming to smoke 6 -8 cigarettes per day. She denies any leg swelling, recent travel or opioid use. She takes gabapentin. She reports a Hx of scoliosis. The physicical exam was unremarkable. CXR showed no acute disease. In the ED course the patient was given Morphine IV and Nitroglycerin SL. Bloodwork and chemistries obtained and are WNL. The patient will be discharged. She is agreeable with this plan. - Diagnoses Provider Diagnoses: Non-cardiac chest pain Discharge - Sign-Out/Discharge Documenting (check all that apply): Patient Departure - DC Patient Received Moderate/Deep Sedation with Procedure: No - Discharge Plan Condition: Good Disposition: HOME Patient Education Materials: Chest Pain (ED) Referrals: Pranay Salmon MD [Primary Care Provider] - 2 Days - Billing Disposition and Condition Condition: GOOD Disposition: Home - Attestation Statements Document Initiated by Scribe: Yes Documenting Scribe: Adolfo Yang Provider For Whom Scribe is Documenting (Include Credential): Freddy Wilson MD Scribe Attestation: Adolfo Swift, scribed for Freddy Wilson MD on 04/24/18 at 0514. Scribe Documentation Reviewed: Yes Provider Attestation: The documentation as recorded by the scribe, Adolfo Yang accurately reflects the service I personally performed and the decisions made by me, Freddy Wilson MD Status of Scribe Document: Viewed
[2018-04-23] MEDS ORDERED: Morphine VIAL* 4 MG/ML VIAL (1 ml vial) IV ONE (23:45)
[2018-04-23] MEDS ORDERED: Nitroglycerin TAB 0.4 MG* 0.4 MG TAB SL ONE (23:45)
[2018-04-24 00:02] LABS: ABS Basophils 0.1 10^3/ul (0-0.2); ABS Eosinophils 0.3 10^3/ul (0-0.6); ABS Lymphocytes 4.5 10^3/ul (1.0-4.8); ABS Monocytes 0.8 10^3/ul (0-0.8); ABS Neutrophils 3.9 10^3/ul (1.5-7.7); ABS Nucleated RBC 0 10^3/ul; Eosinophil % 2.8 %; Hematocrit 37 % (35-47); Hemoglobin 12.7 g/dl (12.0-16.0); Lymphocyte % 46.8 %; Mean Corpuscular HGB Conc 34 g/dl (31-36); Mean Corpuscular Hemoglobin 31 pg (27-31); Mean Corpuscular Volume 92 fL (80-97); Mean Platelet Volume 8.2 fL (7.4-10.4); Nucleated Red Blood Cells % 0.1; Platelet Count 325 10^3/ul (150-450); Red Blood Count 4.08 10^6/ul (4.00-5.40); Red Cell Distribution Width 14 % (10.5-15); White Blood Count 9.6 10^3/ul (3.5-10.8)
[2018-04-24 00:19] LABS: Albumin/Globulin Ratio 1.6 (1-3); BUN/Creatinine Ratio 9.4 (8-20); Calcium 9.9 mg/dL (8.6-10.3); EGFR African American 118.4 (>60); EGFR Non-African American 97.8 (>60); Globulin 2.5 g/dL (2-4); Potassium 3.3 mmol/L (3.5-5.0); Total Bilirubin 0.3 mg/dL (0.2-1.0); Total Protein 6.5 g/dL (6.4-8.9)
[2018-04-24 02:40] VITALS: BP 135/103
== END 2018-04-24 02:50 | disposition home or self-care (01) ==
LOC: ED 22:59
DX: R07.9 Chest pain, unspecified (principal); Z85.3 Personal history of malignant neoplasm of breast; F17.210 Nicotine dependence, cigarettes, uncomplicated
CPT/HCPCS: 36415; 71045; 80053; 84484; 85025; 85379; 93005; 96374; 99284; A9270-GY; J2270

== ENCOUNTER → 2018-06-11 17:03 | Emergency (ER) | payer MEDICARE, MEDICAID ==
--- NOTE | 2018-06-11 17:52 | ED ---
Headache - HPI Summary HPI Summary: Patient with history of migraines complains of migraine starting this a.m., associated with nausea and vomiting. Patient usually takes Maxalt, states she has taken it 3 times a day at 5 AM, 1:30 PM and 5 PM with no relief. Headache presenting like usual migraine, left side. Denies fever, neck stiffness, neck stiffness, cough, sore throat, CP, SOB, N/V/D, abdominal pain, change in urine, change in BM. Medical history is migraines, COPD, scoliosis, chronic pain. - History Of Current Complaint Chief Complaint: EDHeadache Stated Complaint: MIGRAINE PER PT Time Seen by Provider: 06/11/18 17:36 Hx Obtained From: Patient Onset/Duration: Gradual Onset, Started hours ago Initially Headache Was: Moderate Currently Pain Is: Severe Timing: Constant Character: Throbbing Location of Headache: Temporal - left Associated Signs And Symptoms: Nausea, Vomiting - Allergies/Home Medications Allergies/Adverse Reactions: Allergies Allergy/AdvReac Type Severity Reaction Status Date / Time codeine Allergy Constipatio Verified 06/11/18 17:32 [From Tylenol-Codeine #3] n acetaminophen AdvReac Severe no tylenol Verified 06/11/18 17:32 d/t meds she is taking alcohol AdvReac Mild Headache Verified 06/11/18 17:32 oxycodone AdvReac Unknown Verified 06/11/18 17:32 Reaction Details PMH/Surg Hx/FS Hx/Imm Hx Endocrine/Hematology History: Denies: Hx Anticoagulant Therapy, Hx Diabetes, Hx Thyroid Disease Cardiovascular History: Reports: Hx Angina, Hx Hypertension, Hx Syncope, Other Cardiovascular Problems/Disorders - STROKE Denies: Hx Coronary Artery Disease, Hx Hypercholesterolemia, Hx Myocardial Infarction, Hx Pacemaker/ICD, Hx Valvular Heart Disease Respiratory History: Reports: Hx Chronic Obstructive Pulmonary Disease (COPD), Hx Sleep Apnea Denies: Hx Asthma GI History: Reports: Hx Ulcer History: Denies: Hx Renal Disease Musculoskeletal History: Reports: Hx Arthritis, Hx Back Problems, Hx Orthopedic Injury - Fracture left arm, Hx Scoliosis, Hx Tendonitis Comment Only: Other Musculoskeletal History - CARPLE TUNNEL SYNDROME Sensory History: Reports: Hx Contacts or Glasses Denies: Hx Hearing Aid Opthamlomology History: Reports: Hx Contacts or Glasses Neurological History: Reports: Hx Headaches, Hx Migraine, Other Neuro Impairments/Disorders - PAIN CLINIC PT. Denies: Hx Dementia, Hx Seizures Psychiatric History: Reports: Hx Anxiety, Hx Depression Denies: Hx Substance Abuse - Cancer History Cancer Type, Location and Year: LT BREAST CA - Surgical History Surgery Procedure, Year, and Place: Hysterectomy 2016 [facility] in [place], [place]; Lymph nodes and 3 nodules removed from left breast 2013 at [facility] in [place], [place]; 3 C-Sections; Carpal Tunnel Surgery bilateral wrist in [place] in 2004; [employer] Shadi Implant for Scoliosis in 1983 in [place] Infectious Disease History: No Infectious Disease History: Denies: Hx Clostridium Difficile, Hx Hepatitis, Hx Human Immunodeficiency Virus (HIV), Hx of Known/Suspected MRSA, Hx Shingles, Hx Tuberculosis, Traveled Outside the [place] in Last 30 Days - Family History Known Family History: Positive: Cardiac Disease - [place] (father at 54), Other - Migraine Family History: Migraine - Social History Alcohol Use: None Substance Use Type: Reports: None Smoking Status (MU): Light Every Day Tobacco Smoker Type: Cigarettes Amount Used/How Often: < 1/2 ppd Length of Time of Smoking/Using Tobacco: 42 years Have You Smoked in the Last Year: Yes Review of Systems Constitutional: Negative Positive: Photophobia ENT: Negative Cardiovascular: Negative Respiratory: Negative Positive: Vomiting, Nausea Genitourinary: Negative Musculoskeletal: Negative Skin: Negative Positive: Headache Psychological: Normal All Other Systems Reviewed And Are Negative: Yes Physical Exam - Summary Physical Exam Summary: Neuro exam normal. Neck supple. Triage Information Reviewed: Yes Vital Signs On Initial Exam: Initial Vitals Temp Pulse Resp BP Pulse Ox 98.1 F 84 18 153/112 95 06/11/18 17:28 06/11/18 17:28 06/11/18 17:28 06/11/18 17:28 06/11/18 17:28 Vital Signs Reviewed: Yes Appearance: Positive: Well-Appearing Skin: Positive: Warm Head/Face: Positive: Normal Head/Face Inspection Eyes: Positive: Normal ENT: Positive: Normal ENT inspection Neck: Positive: Supple Respiratory/Lung Sounds: Positive: Clear to Auscultation Cardiovascular: Positive: Normal Abdomen Description: Positive: Nontender Musculoskeletal: Positive: Normal Neurological: Positive: Normal Psychiatric: Positive: Normal AVPU Assessment: Alert - [place] Coma Scale Best Eye Response: 4 - Spontaneous Best Motor Response: 6 - Obeys Commands Best Verbal Response: 5 - Oriented Coma Scale Total: 15 Diagnostics - Vital Signs Vital Signs Temp Pulse Resp BP Pulse Ox 06/11/18 17:28 98.1 F 84 18 153/112 95 - Laboratory Lab Statement: Any lab studies that have been ordered have been reviewed, and results considered in the medical decision making process. Headache Course/Dx - Course Course Of Treatment: Patient with history of migraines complains of migraine starting this a.m., associated with nausea and vomiting. Patient usually takes Maxalt, states she has taken it 3 times a day at 5 AM, 1:30 PM and 5 PM with no relief. Headache presenting like usual migraine, left side. Denies fever, neck stiffness, neck stiffness, cough, sore throat, CP, SOB, N/V/D, abdominal pain, change in urine, change in BM. Medical history is migraines, COPD, scoliosis, chronic pain. Physical exam:Neuro exam normal. Neck supple. Vital signs within normal limits. Headache resolved with migraine cocktail, 1 L normal saline and 4 mg morphine IV. - Diagnoses Provider Diagnoses: Migraine Discharge - Sign-Out/Discharge Documenting (check all that apply): Patient Departure Patient Received Moderate/Deep Sedation with Procedure: No - Discharge Plan Condition: Stable Disposition: HOME Patient Education Materials: Migraine Headache (ED) Referrals: Luis Antonio LEDEZMA,Pranay Farrell [Primary Care Provider] - Additional Instructions: Follow-up with primary care. Return to the ED for any new or worsening symptoms. - Billing Disposition and Condition Condition: STABLE Disposition: Home
[2018-06-11] MEDS: NS 0.9% 1000 ML** 1,000 ML IV ONE (18:05)
[2018-06-11] MEDS: Metoclopramide IV* 5 MG/ML 2 ML VIAL IV ONE (18:05)
[2018-06-11] MEDS: diPHENhydraMINE IV* 50 MG/ML 1 ml VIAL (BENADRYL) IV ONE (18:06)
[2018-06-11] MEDS: Ketorolac INJ* 30 MG/ML 1 ML VIAL IV ONE (18:07)
[2018-06-11] MEDS: Morphine 10 MG/ML VIAL (1 ml) IV ONE (20:10)
[2018-06-11 20:50] VITALS: BP 121/95
== END | disposition home or self-care (01) ==
LOC: ED 17:03
DX: G43.909 Migraine, unspecified, not intractable, without status migrainosus (principal); I10 Essential (primary) hypertension; F17.210 Nicotine dependence, cigarettes, uncomplicated; Z86.73 Personal history of transient ischemic attack (TIA), and cerebral infarction without residual deficits; Z88.5 Allergy status to narcotic agent
CPT/HCPCS: 96361; 96374; 96375; 99282; J1200; J1885; J2270; J2765

== ENCOUNTER 2018-07-08 22:44 | Emergency (ER) | payer MEDICARE, MEDICAID ==
--- NOTE | 2018-07-09 00:20 | ED ---
Back Pain - HPI Summary HPI Summary: Pt is a 53 y/o female who presents to the ED c/o back pain. Yesterday she began to have lower back pain which radiates down her LLE to her left ankle. Pain has been worsening and is now rated a 9/10 in severity. This afternoon she began to have a PUGH and N/V. Pt is having difficulty ambulating due to the pain. She denies any numbness, paresthesia, or incontinence. Pt has sciatica and is prescribed Naproxen. She took a leg cramp OTC medication this afternoon, however keeps vomiting any medications she takes. She is a pain clinic patient and her next appointment is in a few weeks. Her last nerve block was in February 2018. PMHx migraine. - History of Current Complaint Chief Complaint: EDBackInjuryPain Stated Complaint: SCIATIC NERVE IS ACTING UP,MEDS NOT WORKING PER PT Time Seen by Provider: 07/09/18 00:16 Hx Obtained From: Patient Onset/Duration: Gradual Onset, Lasting Days - 1, Worse Since Timing: Constant Back Pain Location: Is Discrete @ - low back, radiates to LLE Severity Currently: Severe Pain Intensity: 9 Pain Scale Used: 0-10 Numeric Associated Signs And Symptoms: Positive: Other - N/V, PUGH Related History: Similar Episode Dx As - sciatica - Allergies/Home Medications Allergies/Adverse Reactions: Allergies Allergy/AdvReac Type Severity Reaction Status Date / Time codeine Allergy Constipatio Verified 07/08/18 23:10 [From Tylenol-Codeine #3] n acetaminophen AdvReac Severe no tylenol Verified 07/08/18 23:10 d/t meds she is taking alcohol AdvReac Mild Headache Verified 07/08/18 23:10 oxycodone AdvReac Unknown Verified 07/08/18 23:10 Reaction Details Home Medications: Home Medications Atorvastatin* [Lipitor*] 40 mg PO DAILY 07/09/18 [History Confirmed 07/09/18] Carvedilol TAB NF [Coreg TAB NF] 12.5 mg PO BID 07/09/18 [History Confirmed ] Dexlansoprazole (NF) [Dexilant (NF)] 60 mg PO DAILY 07/09/18 [History Confirmed 07/09/18] Linaclotide (NF) [Linzess (NF)] 145 mcg PO DAILY 07/09/18 [History Confirmed ] PMH/Surg Hx/FS Hx/Imm Hx Endocrine/Hematology History: Denies: Hx Anticoagulant Therapy, Hx Diabetes, Hx Thyroid Disease Cardiovascular History: Reports: Hx Angina, Hx Hypertension, Hx Syncope, Other Cardiovascular Problems/Disorders - STROKE Denies: Hx Coronary Artery Disease, Hx Hypercholesterolemia, Hx Myocardial Infarction, Hx Pacemaker/ICD, Hx Valvular Heart Disease Respiratory History: Reports: Hx Chronic Obstructive Pulmonary Disease (COPD), Hx Sleep Apnea Denies: Hx Asthma GI History: Reports: Hx Ulcer History: Denies: Hx Renal Disease Musculoskeletal History: Reports: Hx Arthritis, Hx Back Problems, Hx Orthopedic Injury - Fracture left arm, Hx Scoliosis, Hx Tendonitis Comment Only: Other Musculoskeletal History - CARPLE TUNNEL SYNDROME Sensory History: Reports: Hx Contacts or Glasses Denies: Hx Hearing Aid Opthamlomology History: Reports: Hx Contacts or Glasses Neurological History: Reports: Hx Headaches, Hx Migraine, Other Neuro Impairments/Disorders - PAIN CLINIC PT. - sciatica Denies: Hx Dementia, Hx Seizures Psychiatric History: Reports: Hx Anxiety, Hx Depression Denies: Hx Substance Abuse - Cancer History Cancer Type, Location and Year: LT BREAST CA - Surgical History Surgery Procedure, Year, and Place: Hysterectomy 2016 [facility] in [place], [place]; Lymph nodes and 3 nodules removed from left breast 2012 at [facility] in [place], [place]; 3 C-Sections; Carpal Tunnel Surgery bilateral wrist in [place] in 2004; Clarke Shadi Implant for Scoliosis in 1983 in [place] Infectious Disease History: No Infectious Disease History: Denies: Hx Clostridium Difficile, Hx Hepatitis, Hx Human Immunodeficiency Virus (HIV), Hx of Known/Suspected MRSA, Hx Shingles, Hx Tuberculosis, Traveled Outside the in Last 30 Days - Family History Known Family History: Positive: Cardiac Disease - [place] (father at 54), Other - Migraine - Social History Alcohol Use: None Hx Substance Use: No Substance Use Type: Reports: None Hx Tobacco Use: Yes Smoking Status (MU): Light Every Day Tobacco Smoker Type: Cigarettes Amount Used/How Often: < 1/2 ppd Length of Time of Smoking/Using Tobacco: 42 years Have You Smoked in the Last Year: Yes Review of Systems Positive: Vomiting, Nausea Negative: incontinence Positive: Myalgia - low back pain radiating down LLE, Other - difficulty ambulating Positive: Headache. Negative: Paresthesia, Numbness All Other Systems Reviewed And Are Negative: Yes Physical Exam - Summary Physical Exam Summary: Appearance: well appearing, moderate pain distress Skin: warm, dry, reflects adequate perfusion Head/face: normal Eyes: EOMI, CHAN ENT: mucous membranes moist Neck: supple, non-tender Respiratory: CTA, breath sounds present Cardiovascular: RRR, pulses symmetrical Abdomen: non-tender, soft Bowel Sounds: present Musculoskeletal: strength/ROM intact, tenderness to palpation of left sciatic notch, midline surgical scar on back extending to the thoracic and lumbar areas Neuro: normal, sensory motor intact, A&Ox3 Triage Information Reviewed: Yes Vital Signs On Initial Exam: Initial Vitals Temp Pulse Resp BP Pulse Ox 98.0 F 97 16 157/110 97 07/08/18 23:07 07/08/18 23:07 07/08/18 23:07 07/08/18 23:07 07/08/18 23:07 Vital Signs Reviewed: Yes Procedures - Procedure Summary Procedure Summary: Trigger Point Injection: done for pain, patient laid supine, left sciatic notch cleaned with alcohol, musculature was injected with a total of 5 cc 0.5% Bupivacaine with Epinephrine in divided aliquots which was then massaged through the tissue, pain relief excellent, ROM restored, procedure tolerated well without complications. Diagnostics - Vital Signs Vital Signs Temp Pulse Resp BP Pulse Ox 07/08/18 23:07 98.0 F 97 16 157/110 97 - Laboratory Lab Statement: Any lab studies that have been ordered have been reviewed, and results considered in the medical decision making process. Re-Evaluation - Re-Evaluation First Eval Re-Evaluation Time: 00:55 Change: Unchanged Comment: Pt feels the same. Second Eval Re-Evaluation Time: 01:30 Change: Improved Comment: Pt feels better Back Pain Course/Dx - Course Course Of Treatment: Patient with tenderness over the sciatic notch and history of chronic low lumbar back pain and other musculoskeletal issues. She has a history of scoliosis. She sees pain management. She was injected in the area of the piriformis muscle and treated for pain with relief. She'll follow up with her pain management doctors. - Diagnoses Differential Diagnosis/HQI/PQRI: Positive: Other - Radiculopathy, disc syndrome , piriformis syndrome Provider Diagnoses: Piriformis syndrome, Chronic back pain Discharge - Sign-Out/Discharge Documenting (check all that apply): Patient Departure - Discharge Patient Received Moderate/Deep Sedation with Procedure: No - Discharge Plan Condition: Improved Disposition: HOME Prescriptions: Dexamethasone [Decadron] 8 mg PO DAILY #8 tablet Patient Education Materials: Piriformis Syndrome (ED) Referrals: Luis Antonio LEDEZMA,Pranay Farrell [Primary Care Provider] - Additional Instructions: Call your pain management doctor first thing in the morning for reevaluation and treatment of your ongoing discomfort. Return if worse, difficulty with bowel or bladder, unable to walk, worse or other concerns. - Billing Disposition and Condition Condition: IMPROVED Disposition: Home - Attestation Statements Document Initiated by Scribe: Yes Documenting Scribe: Kayleen Curry Provider For Whom Scribe is Documenting (Include Credential): Gavin Fabian MD Scribe Attestation: Kayleen Swift scribed for Gavin Fabian MD on 07/09/18 at 0601. Scribe Documentation Reviewed: Yes Provider Attestation: The documentation as recorded by the Kayleen rich accurately reflects the service I personally performed and the decisions made by Gavin de la o MD Status of Scribe Document: Viewed
[2018-07-09] MEDS ORDERED: Dexamethasone TAB* 4 MG PO ONE (00:26)
[2018-07-09] MEDS ORDERED: Ketorolac INJ* 60 MG/2 ML VIAL IM ONE (00:26)
[2018-07-09] MEDS ORDERED: Morphine 4 MG/ML VIAL (1 ml) 4 MG/ML VIAL IM ONE (00:27)
[2018-07-09] MEDS ORDERED: Bupivacaine 0.5% W/EPI SDV* 30 ML VIAL INJ ONE (00:29)
[2018-07-09] MEDS ORDERED: Diazepam TAB(*) 5 MG PO ONE (01:35)
[2018-07-09 03:41] VITALS: BP 105/64
== END 2018-07-09 03:15 | disposition home or self-care (01) ==
LOC: ED 22:44
DX: G57.00 Lesion of sciatic nerve, unspecified lower limb (principal); M54.9 Dorsalgia, unspecified; I10 Essential (primary) hypertension; Z86.73 Personal history of transient ischemic attack (TIA), and cerebral infarction without residual deficits; Z85.3 Personal history of malignant neoplasm of breast; F17.210 Nicotine dependence, cigarettes, uncomplicated; R11.2 Nausea with vomiting, unspecified; J44.9 Chronic obstructive pulmonary disease, unspecified
CPT/HCPCS: 96372; 99283; A9270-GY; J1885; J2270